=== PATIENT | male | born 1955 | race Caucasian/White ===

== ENCOUNTER → 2016-05-22 07:36 | Outpatient (CLI) | payer BC ==
[2012-09-04 10:21] VITALS: BMI 27.7
== END | disposition home or self-care (01) ==
LOC: D.RT 07:36
DX: R06.02 Shortness of breath (principal)

== ENCOUNTER 2018-03-10 10:07 | Inpatient (IN) | payer BC ==
[~2018-03-10] VITALS: Ht 185.4 cm; Wt 90.9 kg
--- NOTE | ~2018-03-10 | MORECARE ---
CASE MANAGEMENT DISCHARGE SUMMARY PATIENT: ELVIA VELÁQZUEZ UNIT: [id number] ADM DATE: 03/10/18 AGE: 62 : 59 SEX: M ROOM/BED: D.2236 AUTHOR: KENN PAREKH PHYSICIAN: REFERRING PHYSICIAN: NANCY VERMA MD DATE OF SERVICE: 03/10/18 Discharge Plan Patient Name: ELVIA VELÁZQUEZ Facility: [facility]:[place] : 1955 Planned Disposition: Anticipated Discharge Date: Discharge Date: Expected LOS: Initial Reviewer: [email or web address] Initial Review Date: 03/10/2018 Generated: 03/10/18 5:04 pm DCP- Discharge Planning Updated by [email or web address]: Ariane Arnold on 03/10/18 2:[address] Patient Name: ELVIA VELÁZQUEZ Admission Status: ER Accout number: [id number] Admission Date: 03-10-2018 : 1955 Admission Diagnosis: Attending: NANCY VERMA Current LOS: 1 Anticipated DC Date: Planned Disposition: Primary Insurance: [employer] BLUE PPO Discharge Planning Comments: CM MET WITH PATIENT ABOUT DC PLANNING/NEEDS. STATES PLANS TO DC TO HOME WHEN BETTER. PATIENT IS INDEPENDANT WITH ADL'S. NO NEEDS IDENTIFIED AT THIS TIME. CM WILL FOLLOW AND ASSIST NEEDED WITH DC PLANNING/NEEDS. Shop Tailor Apprentice: Ariane Arnold DCPIA - Discharge Planning Initial Assessment Updated by [email or web address]: Ariane Arnold on 03/10/18 3:54 pm * Is the patient Alert and Oriented? Yes * How many steps to enter\exit or inside your home? * PCP [facility] * [facility] * Preadmission Environment Home with Family * ADLs Independent * Equipment Nebulizer * List name and contact numbers for known caregivers / representatives who currently or will assist patient after discharge: JOSELYN, * Community resources currently utilized None * Additional services required to return to the preadmission environment? No * Can the patient safely return to the preadmission environment? Yes * Has this patient been hospitalized within the prior 30 days at any hospital? No Last DP export: 03/10/18 2:53 Patient Name: ELVIA VELÁZQUEZ Page [id number] at 1604 All edits/amendments must be made on the electronic document DICTATION DATE: 03/10/181603 LEATHER ROLLER: NICOLE 03/10/181603 RPT#: [id number] DC DATE: STATUS: ADM IN [facility] [address] [place] [address] END OF REPORT
--- NOTE | ~2018-03-10 | MORECARE ---
CASE MANAGEMENT DISCHARGE SUMMARY PATIENT: ELVIA VELÁZQUEZ UNIT: [id number] ADM DATE: 03/10/18 AGE: 62 : 59 SEX: M ROOM/BED: D.2236 AUTHOR: KENN PAREKH PHYSICIAN: REFERRING PHYSICIAN: NANCY VERMA MD DATE OF SERVICE: 03/10/18 Discharge Plan Patient Name: ELVIA VELÁZQUEZ [facility] [facility] 1955 Planned Disposition: Anticipated Discharge Date: Discharge Date: Expected LOS: Initial Reviewer: [email or web address] Initial Review Date: 03/10/2018 Generated: 03/10/18 4:53 pm DCPIA - Discharge Planning Initial Assessment Updated by [email or web address]: Ariane Arnold on 03/10/18 3:54 pm * Is the patient Alert and Oriented? Yes * How many steps to enter\exit or inside your home? * PCP [facility] * [facility] * Preadmission Environment Home with Family * ADLs Independent * Equipment Nebulizer * List name and contact numbers for known caregivers / representatives who currently or will assist patient after discharge: JOSELYN [phone] * Community resources currently utilized None * Additional services required to return to the preadmission environment? No * Can the patient safely return to the preadmission environment? Yes * Has this patient been hospitalized within the prior 30 days at any hospital? No Patient Name: ELVIA VELÁZQUEZ Page [id number] at 1554 All edits/amendments must be made on the electronic document DICTATION DATE: 03/10/181552 SYSTEMS INTEGRATION ADVISOR: NICOLE 03/10/181552 RPT#: [id number] DC DATE: STATUS: ADM IN [facility] [address] [place] [address] END OF REPORT
--- NOTE | ~2018-03-10 | OP ---
PATIENT NAME: ELVIA VELÁZQUEZ MEDICAL RECORD: [id number] :[birth year] LOCATION:D.MS [id number] ADMISSION DATE:03/10/18 SURGEON: MALIK DUMONT MD DATE OF OPERATION: 03/11/2018 SURGEON: Malik Dumont MD ANESTHESIA: General anesthesia by Radha Cooley CRNA. DIAGNOSIS: Right hemiscrotal skin abscess. PROCEDURE: Incision and drainage of right scrotum skin abscess. FINDINGS: The patient had shaved his scrotum. Diffuse scrotal skin cellulitis. Large cutaneous abscess in the right scrotal skin, does not enter into the scrotal cavity. SPECIMENS: Wound culture swabs for aerobic and anaerobic bacteria. ESTIMATED BLOOD LOSS: None. CLINICAL HISTORY: This is a 62-year-old male, who is planning to get . He attempted to shave his scrotum, apparently with a razor blade. He has developed scrotal skin cellulitis as well as a large pointing abscess in the scrotal skin. He came to the Emergency Room yesterday with a complaint of scrotal pain. Scrotal Ultrasound shows some signs of bilateral epididymitis also. He has not had any history of STDs. He may have some obstructive BPH symptoms. He was admitted for pain control. He comes today to have incision and drainage of the scrotal abscess. HE IS ALLERGIC TO ASPIRIN. He was given Ancef relocation services specialist to the OR. DESCRIPTION OF PROCEDURE: The patient was given induction of general anesthesia in supine position. He was then prepped and draped. His scrotum has apparently been shaved already by the patient and this is probably the inciting cause for the scrotal cellulitis and development of subsequent abscess. We could see a bit of pus already draining out spontaneously from the pointing abscess. A #10 blade was used to make a 1 cm incision. Pus came out from the incision. We obtained the wound swabs. I put my finger in and I could feel that the abscess cavity extended cranially and caudally especially more cranially for quite a distance. I followed the abscess cavity and continued to incise the scrotal skin until we had almost all of it filleted open. The wound was then irrigated out using normal saline. Two inch iodoform packing was then placed in to the wound cavity. The dartos fascia is intact and the abscesses did not enter into the hemiscrotal space where the testicle is. We then put 4 x 4 gauze on top of this and I gave him Fluffs and mesh panties. The patient will be going home today with some pain medications and doxycycline. His fiancee will be changing his wound packing for him on a daily basis. TRANSINT:[id number] Voice Confirmation ID: [id number] DOCUMENT ID: [id number] OPERATIVE REPORT [id number] ELVIA VELÁZQUEZ, MALIK Bloom MD at 0823 CC: [id number] DICTATION DATE: 03/11/181558 STAIR BUILDER: 03/11/18 1842 DIS IN 03/11/18 [facility] [address] [place] [address]
--- NOTE | ~2018-03-10 | MORECARE ---
CASE MANAGEMENT DISCHARGE SUMMARY PATIENT: ELVIA VELÁZQUEZ UNIT: [id number] ADM DATE: 03/10/18 AGE: 62 : 59 SEX: M ROOM/BED: D.2236 AUTHOR: IGLESIA,DOC PHYSICIAN: REFERRING PHYSICIAN: NANCY VERMA MD DATE OF SERVICE: 03/12/18 Discharge Plan Patient Name: ELVIA VELÁZQUEZ Facility: [facility]:[place] : 1955 Planned Disposition: Home Anticipated Discharge Date: Discharge Date: 03/11/2018 Expected LOS: 0 Initial Reviewer: [email or web address] Initial Review Date: 03/10/2018 Generated: 03/12/18 12:54 pm DCP- Discharge Planning Updated by [email or web address]: Ariane Arnold on 03/10/18 2:[address] Patient Name: ELVIA VELÁZQUEZ Admission Status: ER Accout number: [id number] Admission Date: 03-10-2018 : 1955 Admission Diagnosis: Attending: NANCY VERMA Current LOS: 1 Anticipated DC Date: Planned Disposition: Primary Insurance: [employer] BLUE PPO Discharge Planning Comments: CM MET WITH PATIENT ABOUT DC PLANNING/NEEDS. STATES PLANS TO DC TO HOME WHEN BETTER. PATIENT IS INDEPENDANT WITH ADL'S. NO NEEDS IDENTIFIED AT THIS TIME. CM WILL FOLLOW AND ASSIST NEEDED WITH DC PLANNING/NEEDS. Wellness Rn: Ariane Arnold DCPIA - Discharge Planning Initial Assessment Updated by [email or web address]: Ariane Arnold on 03/10/18 3:54 pm * Is the patient Alert and Oriented? Yes * How many steps to enter\exit or inside your home? * PCP [facility] * [facility] * Preadmission Environment Home with Family * ADLs Independent * Equipment Nebulizer * List name and contact numbers for known caregivers / representatives who currently or will assist patient after discharge: JOSELYN [phone] * Community resources currently utilized None * Additional services required to return to the preadmission environment? No * Can the patient safely return to the preadmission environment? Yes * Has this patient been hospitalized within the prior 30 days at any hospital? No Last DP export: 03/10/18 3:04 Patient Name: ELVIA VELÁZQUEZ Page 13820 at 1154 All edits/amendments must be made on the electronic document DICTATION DATE: 03/12/181152 BELLHOP SERVICE CAPTAIN: NICOLE 03/12/181152 RPT#: [id number] DC DATE:03/11/18 STATUS: DIS IN [facility] [address] [place] [address] END OF REPORT
[2018-03-10] MEDS ORDERED: K-TAB10 MEQ PO (10:15)
[2018-03-10] MEDS ORDERED: LOTREL 5-40 MG1 EACH PO (10:16)
[2018-03-10] MEDS ORDERED: AMBIEN5 MG PO (10:16)
[2018-03-10] MEDS ORDERED: CARDURA1 MG PO (10:17)
[2018-03-10 11:14] LABS: BASOPHILS 0.1 % (0-2); EOSINOPHILS 0.6 % (0-7); HEMATOCRIT 44.8 % (42.0-54.0); HEMOGLOBIN 15.8 g/dL (13.5-17.5); IMMATURE GRANULOCYTES 0.2 % (0-5); LYMPHOCYTES 6.9 % (15-50); MCH 30.7 pg (26.0-34.0); MCHC 35.3 g/dL (31.0-37.0); MEAN PLATELET VOLUME 10.9 fL (7.4-10.4); MONOCYTES 7.7 % (2-11); NEUTROPHILS 84.5 % (40-80); RBC 5.15 10x6/uL (4.20-6.10); RDW 13.4 % (11.5-14.5); WBC 13.7 10x3/uL (4.8-10.8)
[2018-03-10 11:32] LABS: PLATELET COUNT 136 10x3/uL (130-400)
[2018-03-10 11:52] LABS: ALBUMIN 3.3 g/dL (3.4-5.0); ANION GAP 9.3 mmol/L (8-16); BILIRUBIN - TOTAL 0.86 mg/dL (0.2-1.3); CALCIUM 9.1 mg/dL (8.5-10.1); CARBON DIOXIDE 29.2 mmol/L (21.0-32.0); CREATININE - SERUM 1.2 mg/dL (0.6-1.3); POTASSIUM - SERUM 3.5 mmol/L (3.5-5.1); PROTEIN - SERUM 7.2 g/dL (6.4-8.2)
[2018-03-10] MEDS ORDERED: AVAPRO300 MG PO (16:03)
[2018-03-10] MEDS ORDERED: MIRAPEX ER0.375 MG PO (16:05)
[2018-03-10] MEDS ORDERED: ELAVIL25 MG PO (16:07)
[2018-03-10] MEDS ORDERED: NORCO 10-325 TA1 TAB PO (16:08)
[2018-03-10] MEDS ORDERED: CIALIS2.5 MG PO (16:09)
[2018-03-10] MEDS ORDERED: PHENERGAN25 M1 PO (16:09)
[2018-03-10 16:11] VITALS: Ht 185.4 cm; Wt 90.9 kg
[2018-03-10 20:00] VITALS: BP 133/70
[2018-03-11 04:56] LABS: BASOPHILS 0.1 % (0-2); EOSINOPHILS 2.3 % (0-7); HEMATOCRIT 40.2 % (42.0-54.0); HEMOGLOBIN 13.9 g/dL (13.5-17.5); IMMATURE GRANULOCYTES 0.2 % (0-5); LYMPHOCYTES 12.4 % (15-50); MCH 30.2 pg (26.0-34.0); MCHC 34.6 g/dL (31.0-37.0); MCV 87.2 fL (80.0-100.0); MEAN PLATELET VOLUME 10.8 fL (7.4-10.4); MONOCYTES 7.8 % (2-11); NEUTROPHILS 77.2 % (40-80); PLATELET COUNT 132 10x3/uL (130-400); RBC 4.61 10x6/uL (4.20-6.10); RDW 13.7 % (11.5-14.5)
[2018-03-11 05:00] VITALS: BP 130/72
[2018-03-11 05:05] LABS: ALBUMIN 2.8 g/dL (3.4-5.0); ANION GAP 8.8 mmol/L (8-16); BILIRUBIN - TOTAL 0.48 mg/dL (0.2-1.3); CALCIUM 7.9 mg/dL (8.5-10.1); CARBON DIOXIDE 29.6 mmol/L (21.0-32.0); CREATININE - SERUM 1.1 mg/dL (0.6-1.3); POTASSIUM - SERUM 3.4 mmol/L (3.5-5.1); PROTEIN - SERUM 6.2 g/dL (6.4-8.2)
[2018-03-11 05:08] LABS: WBC 8.9 10x3/uL (4.8-10.8)
[2018-03-11 07:43] VITALS: BP 138/90
[2018-03-11 16:07] VITALS: BP 141/79
[2018-03-11 16:38] VITALS: BP 151/80
[2018-03-11] MEDS ORDERED: VIBRAMYCIN25 MG/5 ML PO (17:37)
== END 2018-03-11 19:35 | disposition home or self-care (01) | DRG 728 ==
LOC: D.ER 10:07 → D.MS 13:59
PROVIDERS: Family Medicine; Urology
PROC: 0V95XZZ Drainage of Scrotum, External Approach (ICD-10-PCS; principal; 2018-03-11 12:30)
DX: N49.2 Inflammatory disorders of scrotum (principal); I10 Essential (primary) hypertension; F41.9 Anxiety disorder, unspecified; E78.5 Hyperlipidemia, unspecified; E11.9 Type 2 diabetes mellitus without complications

== ENCOUNTER → 2019-10-22 08:01 | Outpatient (CLI) | payer BC ==
[2018-03-10 16:11] VITALS: BMI 26.4
[~2019-10-22 08:01] MED LIST: AMBIEN5 MG PO; AVAPRO300 MG PO; CARDURA1 MG PO; CIALIS2.5 MG PO; ELAVIL25 MG PO; K-TAB10 MEQ PO; LOTREL 5-40 MG1 EACH PO; MIRAPEX ER0.375 MG PO; NORCO 10-325 TA1 TAB PO; PHENERGAN25 M1 PO; VIBRAMYCIN25 MG/5 ML PO
== END | disposition home or self-care (01) ==
LOC: D.HCCARDIO 08:01
PROVIDERS: ATTEND Internal Medicine Cardiovascular Disease
DX: R00.2 Palpitations (principal)

== ENCOUNTER 2019-11-04 12:11 | Outpatient (CLI) | payer BC ==
[~2019-11-04] VITALS: Ht 185.4 cm; Wt 95.5 kg
--- NOTE | ~2019-11-04 | HEMODYNAMI ---
PATIENT:ELVIA VELÁZQUEZ MEDICAL RECORD: [id number] : 59 LOCATION:[facility] ADMISSION DATE: 11/04/19 Generatedon:11/04/201915:35 Patient name: ELVIA VELÁZQUEZ Patient #: [id number] SSN: [id number] : 1955 Date of study: 11/04/2019 Page: Of Hemodynamic Procedure Report Patient Data Patient Demographics Procedure consent was obtained First Name: ELVIA Gender: Male Last Name: EBER : 1955 Middle Initial: RUFINO Age: 64 year(s) Patient #: [id number] Race: Unknown SSN: [id number] Additional ID: [id number] Contact details Address: [place] [address] State: [place] City: [place] Zip code: [address] Past Medical History Performed procedures and imaging results Date Procedure Procedure Results Comments Stress testing Positive->Intermediate with SPECT MPI risk Allergies Allergen Reaction Date Comments Reported Other allergy 11/04/2019 ASPIRIN, PCN Admission Admission Data Admission Date: 11/04/2019 Admission Time: 12:11 Height (in.): 72.83 BSA: 2.19 (m2) Height (cm.): 185 BMI: 27.76 (kg/m2) Weight (lbs.): 209.44 Weight (kg.): 95 Lab Results Lab Result Date: 11/04/2019 Lab Result Time: 0:00 Biochemistry Name Units Result Min Max BUN mg/dl 22 --(----)-* 7 18 Creatinine mg/dl 1.2 --(---*)-- 0.6 1.3 eGFR ml/min 64.35637 *-(----)-- 90 120 NONAFRICAN CBC Name Units Result Min Max Hematocrit % 46 --(-*--)-- 42 54 Hemoglobin g/dl 15.4 --(-*--)-- 13.5 17.5 Procedure Procedure Types Cath Procedure Diagnostic Procedure LHC C w/Coronaries Sedation Charges Moderate Sedation up to 30 minutes Procedure Description Procedure Date Procedure Date: 11/04/2019 Procedure Start Time: 15:10 Procedure End Time: 15:33 Procedure Staff Name Function Jose E Briscoe MD Performing Physician Candelaria Fernandez RT Monitor Brenda Keita RT Scrub Jakob Tucker RN Nurse Maria Villafuerte RT Monitor Procedure Data Cath Procedure Fluoroscopy Diagnostic fluoroscopy Total fluoroscopy Time: 6.7 time: 6.7 min min Diagnostic fluoroscopy Total fluoroscopy dose: dose: 1466 mGy 1466 mGy Contrast Material Contrast Material Type Amount (ml) Isovue 370 104 Entry Location Entry Primary Successful Side Size Upsize Upsize Entry Closure Cheung ccessful Closure Location (Fr) 1 (Fr) 2 (Fr) Remarks Device Remarks Radial Right 6 Fr Mechanical artery Short Compression Estimated blood loss: 5 ml Diagnostic catheters Device Type Used For End Catheter Placement DIAGNOSTIC Radhames 110cm Procedure 5Fr catheter ([id number]) DIAGNOSTIC [place] 110cm 5 Procedure Fr catheter ([id number]) DIAGNOSTIC [place] 4.5 5Fr Procedure catheter ([id number]) Procedure Complications No complications Procedure Medications Medication Administration Route Dosage 0.9% NaCl I.V. 100 ml/hr Oxygen etCO2 Nasal cannula 2 l/min Lidocaine 2% added to field 20 Heparin Flush Bag added to field 2 bags (1000units/500ml NS) Radial Cocktail added to field 1 syringe (Verapamil 2mg/Nitro 400mcg/Heparin 1500units) Versed I.V. 1 mg Fentanyl I.V. 50 mcg Radial Cocktail I.A. 1 syringe (Verapamil 2mg/Nitro 400mcg/Heparin 1500units) Versed I.V. 1 mg Fentanyl I.V. 50 mcg Versed I.V. 1 mg Versed I.V. 1 mg Hemodynamics Rest BSA: 2.19 (m2) HGB: 15.4 (g/dl) O2 Consumption: Estimated: 241.43 (ml/min) O2 Co nsumption indexed: Estimated:110.24 (ml/min/m) Heart Rate: 52 (bpm) Pressure Samples Time Site Value (mmHg) Purpose Heart Use Rate(bpm) 15:14 LV 130/-3,32 Snapshot 47 15:15 AO 98/62(77) Pullback 55 15:15 LV 109/7,17 Pullback 55 Gradients Valve Time Site 1 Site 2 Mean SEP/DFP Peak To Heart Use (mmHg) (sec/min) Peak Rate (mmHg) (bpm) Aortic 15:15 LV AO 1 4 11 55 109/7,17 98/62(77) Calculations Valve P-P Mean Valve Index Valve Source Name Gradient Area Flow (cm2) Aortic 11 1 11 1 Snapshots Pre Cath Intra NCS Post Cath Vital Signs Time Heart Resp SPO2 etCO2 NIBP (mmHg) Rhythm Pain Sedation Rate (ipm) (%) (mmHg) Status Level (bpm) 14:27:41 49 14 97 11.2 198/111(138) SB 0 (11) 10(A) , No pain 14:34:02 51 19 97 41.8 198/107(130) SB 0 (11) 10(A) , No pain 14:39:07 50 16 94 43.3 181/101(122) SB 0 (11) 10(A) , No pain 14:43:17 51 17 94 45.5 168/109(129) SB 0 (11) 10(A) , No pain 14:48:10 48 18 95 44.8 159/106(134) SB 0 (11) 10(A) , No pain 14:53:13 49 13 96 52.3 178/107(133) SB 0 (11) 10(A) , No pain 14:58:10 52 15 95 51.5 172/104(124) SB 0 (11) 10(A) , No pain 15:03:07 50 11 95 50 156/103(119) SB 0 (11) 10(A) , No pain 15:08:06 48 14 96 50 156/106(124) SB 0 (11) 10(A) , No pain 15:12:16 50 15 95 48.5 164/101(131) SB 0 (11) 10(A) , No pain 15:16:34 58 16 94 46.3 122/75(99) SB 0 (11) 9(A) , No pain 15:20:38 55 19 94 47.8 133/90(109) SB 0 (11) 9(A) , No pain 15:24:48 52 10 94 47.8 142/86(112) SB 0 (11) 9(A) , No pain 15:29:02 50 15 95 48.5 144/85(104) SB 0 (11) 10(A) , No pain 15:33:07 50 9 95 50 149/95(123) SB 0 (11) 10(A) , No pain Medications Time Medication Route Dose Verified Delivered Reason Notes E ffectiveness by by 14:23:01 0.9% NaCl I.V. 100 Jose E Buffie used for ml/hr Luis Felipe Tucker RN procedure 14:23:07 Oxygen etCO2 2 l/min Jose E Buffie used for Nasal Luis Felipe Tucker RN procedure cannula 14:23:13 Lidocaine 2% added 20ml Jose E Jose E for local to vial Luis Felipe Briscoe MD anesthetic field 14:23:19 Heparin Flush added 2 bags Jose E Jose E used for Bag to Luis Felipe Briscoe MD procedure (1000units/500ml field NS) 14:23:24 Radial Cocktail added 1 Jose E Jose E used for (Verapamil to syringe Luis Felipe Briscoe MD procedure 2mg/Nitro field 400mcg/Heparin 1500units) 15:12:28 Versed I.V. 1 mg Jose E Buffie for Luis Felipe Tucker RN sedation 15:12:33 Fentanyl I.V. 50 mcg Jose E Buffie for Luis Felipe Tucker RN sedation 15:13:29 Radial Cocktail I.A. 1 Jose E Buffie used for (Verapamil syringe Luis Felipe Tucker RN procedure 2mg/Nitro 400mcg/Heparin 1500units) 15:16:03 Versed I.V. 1 mg Jose E Buffie for Luis Felipe Tucker RN sedation 15:16:07 Fentanyl I.V. 50 mcg Jose E Buffie for Luis Felipe Tucker RN sedation 15:21:11 Versed I.V. 1 mg Jose E Buffie for Luis Felipe Tucker RN sedation 15:25:12 Versed I.V. 1 mg Jose E Buffie for Luis Felipe Tucker RN sedation Procedure Log Time Note 13:42:48 Informed consent obtained and on chart 13:43:06 Procedure Status Elective Heart Cath (OP). 13:43:16 Time tracking: Regular hours (M-F 7:00 - 5:00) 13:43:20 Plan of Care:Hemodynamics will remain stable., Cardiac rhythm will remain stable., Comfort level will be maintained., Respiratory function will remain adequate., Patient/ family verbilizes understanding of procedure., Procedure tolerated without complication., Recovers from procedure without complications.. 13:43:34 H&P Date Dictated: 10/14/2019 Within 30 days and on chart., H&P Addendum completed by physician on day of procedure. (MUST COMPLETE FOR ALL OUTPATIENTS). 13:43:49 Patient allergic to Other allergyASPIRIN, PCN 13:54:28 Stress Test: yes; abnormal INFERIOR, LATERAL, APICAL 13:58:05 Patient Weight : 209.44 lbs 13:58:07 Patient Height : 72.83 inches 14:09:35 Brenda Keita RT(R) (CV) sent for patient. Start room use. 14:14:31 Patient received from Pre/Post Procedure Room to CCL 2 Alert and oriented. Tansferred to table in Supine position. 14:14:32 Warm blankets applied, and daniel hugger turned on for patient comfort. 14:14:32 Correct patient and procedure confirmed by team. 14:14:33 ECG and BP/O2 sat monitors applied to patient. 14:23:01 0.9% NaCl 100 ml/hr I.V. was administered by Jakob Tucker RN; used for procedure; Verbal order read back and verified. 14:23:07 Oxygen 2 l/min etCO2 Nasal cannula was administered by Jakob Tucker RN; used for procedure; Verbal order read back and verified. 14:23:13 Lidocaine 2% 20ml vial added to field was administered by Jose E Briscoe MD; for local anesthetic; Verbal order read back and verified. 14:23:19 Heparin Flush Bag (1000units/500ml NS) 2 bags added to field was administered by Jose E Brisoce MD; used for procedure; Verbal order read back and verified. 14:23:24 Radial Cocktail (Verapamil 2mg/Nitro 400mcg/Heparin 1500units) 1 syringe added to field was administered by Jose E Briscoe MD; used for procedure; Verbal order read back and verified. 14:26:01 Vital chart was started 14:26:51 Baseline sample Acquired. 14:26:59 Rhythm: sinus bradycardia 14:27:01 Full Disclosure recording started 14:28:23 Pre-procedure instructions explained to patient. 14:28:23 Pre-op teaching completed and patient verbalized understanding. 14:28:27 Family in patients room. 14:28:28 Patient NPO since Midnight. 14:29:20 Is patient on blood thinner?No 14:29:24 Patient diabetic? No. 14:29:27 Previous problem with sedation/anesthesia? No ? 14:29:28 Snore? Yes 14:29:29 Sleep apnea? No 14:29:35 Deviated septum? No 14:29:36 Opens mouth fully? Yes 14:29:37 Sticks out tongue? Yes 14:29:40 Airway obstruction? No ? 14:30:30 Dentures? No ? 14:30:33 Pre procedure: right dorsailis pedis pulse 1+ Palpable, but thready & weak; easily obliterated 14:30:36 Modified Alex's test Ulnar < 7 seconds 14:30:38 Patient pain scale 0/10 ?. 14:30:44 IV patent on arrival in left hand with 0.9% NaCl at [facility]. 14:31:17 Lab Result : BUN 22 mg/dl 14:31:17 Lab Result : Creatinine 1.2 mg/dl 14:31:17 Lab Result : eGFR NONAFRICAN 64.12708 ml/min 14:31:17 Lab Result : Hemoglobin 15.4 g/dl 14:31:17 Lab Result : Hematocrit 46 % 14:32:44 Lab results completed and on chart. 14:32:48 Right Radial & Right Groin area was prepped with chlora-prep and draped in sterile fashion 14:32:49 Alarms reviewed by R. N. 14:32:50 Sharps counted by scrub and verified by R.N. 14:36:27 Use device set Radial Dx or PCI 14:36:28 ACIST Syringe (79277) opened to sterile field. 14:36:29 Medline Cath Pack ([id number]) opened to sterile field. 14:36:30 Bag Decanter () opened to sterile field. 14:36:31 ACIST Hand Control (50267) opened to sterile field. 14:36:31 ACIST Manifold (85771) opened to sterile field. 14:36:31 Tegaderm 4 x 4 (1626W) opened to sterile field. 14:36:32 MBrace Wrist Support ([id number]) opened to sterile field. 14:36:33 NEEDLE Cook 21G 4cm Radial (W27154) opened to sterile field. 14:36:35 EMERALD Guide Wire (712-732) opened to sterile field. 14:36:36 SHEATH 6FR RAIN (7465312) opened to sterile field. 14:59:08 --------ALL STOP TIME OUT------ 14:59:11 Final Timeout: patient, procedure, and site verified with staff and physician. All members of the team are in agreement. 14:59:14 Right Radial & Right Groin site verified by team. 14:59:17 Fire Safety Assessment: A--An alcohol-based skin anteseptic being used preoperatively., C--Open oxygen or nitrous oxide is being used., D--An ESU, laser, or fiber-optic light is being used. 14:59:19 Physical assessment completed. ASA score P 2 - A patient with mild systemic disease as per Jose E Briscoe MD. 14:59:22 2) 60-89 Mildly reduced kidney function, and other findings (as for stage 1) point to kidney disease. 14:59:26 Maximum allowable contrast dose (3.7 X eGFR X 0.75)180 ml. 14:59:28 Sedation plan: IV Moderate Sedation Medication:Versed, Fentanyl 15:09:56 Procedure started. 15:10:03 Local anesthetic to right radial artery with Lidocaine 2% by Jose E Briscoe MD.INITIAL ACCESS ONLY 15:11:16 A 6 Fr Short sheath was inserted into the Right Radial artery 15:12:28 Versed 1 mg I.V. was administered by Jakob Tucker RN; for sedation; Verbal order read back and verified. 15:12:33 Fentanyl 50 mcg I.V. was administered by Jakob Tucker RN; for sedation; Verbal order read back and verified. 15:13:26 A DIAGNOSTIC Radhames 110cm 5Fr catheter ([id number]) was advanced over the wire and used for Procedure. 15:13:29 Radial Cocktail (Verapamil 2mg/Nitro 400mcg/Heparin 1500units) 1 syringe I.A. was administered by Jakob Tucker RN; used for procedure; Verbal order read back and verified. 15:13:29 LV gram done using HAIRSTON 15:14:04 Injector settings: Ml/sec: 5, Volume: 15, 15:14:20 LV hemodynamics recorded. 15:14:49 EF : 55 % 15:15:11 RCA angiography performed. 15:15:15 Injector settings: Ml/sec: 3, Volume: 6, 15:16:03 Versed 1 mg I.V. was administered by Jakob Tucker RN; for sedation; Verbal order read back and verified. 15:16:07 Fentanyl 50 mcg I.V. was administered by Jakob Tucker RN; for sedation; Verbal order read back and verified. 15:18:07 unable to engage lca with nabil catheter switching to tiger. 15:18:16 A DIAGNOSTIC [place] 110cm 5 Fr catheter ([id number]) was advanced over the wire and used for Procedure. 15:20:23 UNABLE TO ENGAGE LCA WITH TIGER. 15:20:41 A DIAGNOSTIC [place] 4.5 5Fr catheter ([id number]) was advanced over the wire and used for Procedure. 15:21:11 Versed 1 mg I.V. was administered by Jakob Tucker RN; for sedation; Verbal order read back and verified. 15:21:46 LCA angiography performed. 15:22:35 Injector settings: Ml/sec: 3, Volume: 6, 15:23:25 UNABLE TO ENGAGE FOR ALL VIEWS OF THE LCA WITH THE TIGER 4.5 CATHETER . 15:24:06 GUIDE 5FR EBU 3.5 catheter ([id number]) opened to sterile field. 15:25:12 Versed 1 mg I.V. was administered by Jakob Tucker RN; for sedation; Verbal order read back and verified. 15:26:06 LCA angiography performed. 15:26:20 Injector settings: Ml/sec: 3, Volume: 6, 15:29:08 Catheter removed. 15:29:12 ZEPHYR REGULAR TR BAND ([id number]) opened to sterile field. 15:29:25 Sheath removed intact; hemostasis achieved with Mechanical Compression to the Right Radial artery. 15:29:27 Procedure ended.(Physican Out) 15:29:45 Fluoroscopy time 06.70 minutes. 15:29:48 Fluoroscopy dose: 1466 mGy 15:29:48 Flurop Dose total: 1466 15::53 Dose Area Product 35338 mGy/cm. 15:30:02 Contrast amount:Isovue 370 104ml. 15:30:04 Maximum allowable dose exceeded? No. 15:30:05 Sharps counted by scrub and verified by R.N. 15:30:09 Post Procedure Pulses reassessed and unchanged 15:30:12 Post procedure: right dorsailis pedis pulse 2+ Normal; easily identifiable; not easily obliterated. 15:30:15 Post-procedure physical assessment completed. ASA score P 2 - A patient with mild systemic disease as per Jose E Briscoe MD. 15:30:18 Post procedure rhythm: unchanged. 15:30:21 Estimated blood loss: 5 ml 15:30:22 Post procedure instruction explained to patient.Patient verbalizes understanding. 15:30:23 Patient needs reinforcement of post procedure teaching. 15:30:55 Procedure type changed to Cath procedure, Diagnostic procedure, LHC, LHC w/Coronaries, Sedation Charges, Moderate Sedation up to 30 minutes 15:32:19 Procedure and supply charges have been captured, reviewed, submitted and are correct. 15:32:23 Procedure Complication : No complications 15:32:27 Vital chart was stopped 15:33:03 [facility] Findings: mild to moderate CAD (<70%) 15:33:05 Operative report dictated upon procedure completion. 15:33:05 See physician's report for complete and final results. 15:33:10 Report given to Pre/Post Procedure Room. 15:33:27 Patient transfered to Pre/Post Procedure Room with Stretcher. 15:33:30 Procedure ended. 15:33:30 Full Disclosure recording stopped 15:33:36 End room use (Document Last) 15:34:08 End room use (Document Last) 15:34:42 [place] band inflated with 13cc of air. Device Usage Item Name Manufacture Quantity Catalog Hospital Part Current Minima l Lot# / Number Charge Number Stock Stock Serial# Code ACIST Acist 1 07719 706462 628089 639666 20 Syringe Medical (38015) Systems Inc Medline Medline 1 [id number] 726220 14233 486223 5 Cath Pack ([id number]) Bag Microtek 1 2001S 804426 95843 238095 5 Decanter Medical Inc. () ACIST Hand Acist 1 53048 110390 848790 556791 5 Control Medical (39165) Systems Inc ACIST Acist 1 77754 012763 221249 956028 5 Manifold Medical (86081) Systems Inc Tegaderm 4 3M 1 1626W 580421 703273 302887 5 x 4 (1626W) MBrace Advanced 1 140-0250-00 426459 36228 537424 5 Wrist Vascular Support Dynamics ([id number]) NEEDLE Cook Cook Medical 1 [id number] 349947 951001 669107 5 21G 4cm Radial (J23729) EMERALD Cardinal 1 502-455 930058 407386 307826 5 Guide Wire Health (502455) SHEATH 6FR Cardinal 1 5609225 056715 8559883 090240 5 [facility] Health (0924111) DIAGNOSTIC Terumo 1 40-5023 795717 147843 836171 5 Radhames 110cm 5Fr catheter (418079) DIAGNOSTIC Terumo 1 40-5013 357535 514488 568516 5 [place] 110cm 5 Fr catheter (403797) DIAGNOSTIC Terumo 1 40-5012 351433 835178 938397 5 [place] 4.5 5Fr catheter (372148) GUIDE 5FR Medtronic 1 [id number] 013823 199924 523269 1 EBU 3.5 catheter ([id number]) ZEPHYR Cardinal 1 543839 460385 4709381 244774 5 REGULAR TR Health BAND (933846) Signature Audit [place] Stage Time Signature Unsigned Intra-Procedure 11/04/2019 Jakob Tucker RN 3:34:53 PM Intra-Procedure 11/04/2019 Jose E Briscoe MD 3:35:20 PM Signatures Performing Physician : Signature : Jose E Brsicoe MD Date : Time : Monitor : Candelaria Fernandez Signature : RT Date : Time : Nurse : Jakob Tucker RN Signature : Date : Time : Monitor : Maria Villafuerte Signature : RT Date : Time : [address] [place] [address]
[2019-11-04] MEDS ORDERED: PAXIL20 MG PO (12:44)
[2019-11-04] MEDS ORDERED: DONEPEZIL HCL5 MG PO (12:44)
[2019-11-04] MEDS ORDERED: LIPITOR10 MG PO (12:44)
[2019-11-04] MEDS ORDERED: NORMODYNE / TR300 MG PO (12:44)
[2019-11-04] MEDS ORDERED: PREVACID30 MG PO (12:45)
[2019-11-04] MEDS ORDERED: LOTENSIN20 MG PO (12:46)
[2019-11-04] MEDS ORDERED: FUROSEMIDE20 MG PO (12:46)
[2019-11-04] MEDS ORDERED: BACTRIM DS TAB1 EAC1 PO (12:48)
[2019-11-04] MEDS ORDERED: MUPIROCIN22 GM TOPICAL (12:49)
[2019-11-04] MEDS ORDERED: K-TAB10 MEQ PO (12:49)
[2019-11-04] MEDS ORDERED: AMBIEN10 MG PO (12:59)
[2019-11-04 13:04] VITALS: BP 180/89; Ht 185.4 cm; Wt 95.5 kg
[2019-11-04 13:27] LABS: BASOPHILS 0.2 % (0-2); EOSINOPHILS 2.5 % (0-7); HEMOGLOBIN 15.4 g/dL (13.5-17.5); IMMATURE GRANULOCYTES 0.2 % (0-5); LYMPHOCYTES 21.6 % (15-50); MCH 28.8 pg (26.0-34.0); MCHC 33.5 g/dL (31.0-37.0); MEAN PLATELET VOLUME 10.1 fL (7.4-10.4); MONOCYTES 7.5 % (2-11); PLATELET COUNT 135 10x3/uL (130-400); RBC 5.35 10x6/uL (4.20-6.10); RDW 16.2 % (11.5-14.5); WBC 6.4 10x3/uL (4.8-10.8)
[2019-11-04 13:29] LABS: CALCIUM 8.3 mg/dL (8.5-10.1); CARBON DIOXIDE 31.7 mmol/L (21.0-32.0); CHOL - HDL RATIO 3.5 ratio (2.3-4.9); CREATININE - SERUM 1.2 mg/dL (0.6-1.3); POTASSIUM - SERUM 3.7 mmol/L (3.5-5.1)
--- NOTE | 2019-11-04 15:45 | NUR ---
PT REC'D TO ROOM 3 VIA STRETCHER FROM SUPERVISOR ELECTRIC. DR. PEREZ AT BS TO UPDATE PT. MONITORS ESTAB. SEE [employer] SURFACE HEATER OPERATOR. ALARMS ON AND C/L IN REACH.
--- NOTE | 2019-11-04 16:00 | NUR ---
R WRIST SITE C/D/I, NO S/S BLEEDING OR HEMATOMA. R ARM/HAND WARM WITH PALP PULSES. PT SITTING UP IN BED, SANDWICH TRAY PROVIDED. ALARMS ON AND C/L IN REACH.
--- NOTE | 2019-11-04 16:30 | NUR ---
R Z BAND SITE C/D/I, NO S/S BLEEDING OR HEMATOMA. ARM/HAND WARM WITH PALP PULSES. VSS. C/L IN REACH.
--- NOTE | 2019-11-04 16:45 | NUR ---
5 CC AIR REMOVED FROM Z BAND SLOWLY - NO S/S BLEEDING - WILL CONT CLOSE MONITORING. PT ALERT AND ORIENTED. VSS. C/L IN REACH.
--- NOTE | 2019-11-04 17:00 | NUR ---
ALL AIR REMOVED FROM Z BAND, NO S/S BLEEDING OR SWELLING. WILL CONT CLOSE MONITORING. ALARMS ON AND C/L IN REACH.
--- NOTE | 2019-11-04 17:15 | NUR ---
R WRIST SITE C/D/I, NO S/S BLEEDING OR SWELLING. ARM/HAND WARM WITH PALP PULSES. PIV D/C'D INTACT, DSG APPLIED. PT ALLOWED UP TO GET DRESSED AND GO TO BR INDEPENDENTLY.
--- NOTE | 2019-11-04 17:25 | NUR ---
ALL DISCHARGE INSTRUCTIONS REVIEWED WITH PT - VERBALIZES UNDERSTANDING. Z BAND OFF AND DSG APPLIED.
--- NOTE | 2019-11-04 17:35 | NUR ---
PT D/C'D VIA WC TO PRIVATE VEHICLE, R WRIST IMMOBILIZER IN PLACE. PT HAS ALL BELONGINGS AND PAPERWORK.
== END 2019-11-04 17:35 | disposition home or self-care (01) ==
LOC: D.CATH 12:11
PROVIDERS: ATTEND Internal Medicine Cardiovascular Disease
DX: I20.9 Angina pectoris, unspecified (principal); R94.39 Abnormal result of other cardiovascular function study; I10 Essential (primary) hypertension; E78.5 Hyperlipidemia, unspecified; R00.2 Palpitations; R60.9 Edema, unspecified

== ENCOUNTER → 2019-11-09 08:19 | Outpatient (CLI) | payer BC ==
[2019-11-04 13:04] VITALS: BMI 27.7
[~2019-11-09 08:19] MED LIST changes: +AMBIEN10 MG PO; +BACTRIM DS TAB1 EAC1 PO; +DONEPEZIL HCL5 MG PO; +FUROSEMIDE20 MG PO; +LIPITOR10 MG PO; +LOTENSIN20 MG PO; +MUPIROCIN22 GM TOPICAL; +NORMODYNE / TR300 MG PO; +PAXIL20 MG PO; +PREVACID30 MG PO
== END | disposition home or self-care (01) ==
LOC: D.CT 08:00
PROVIDERS: ATTEND Internal Medicine Cardiovascular Disease
DX: I10 Essential (primary) hypertension (principal); R00.2 Palpitations; R60.9 Edema, unspecified

== ENCOUNTER → 2020-01-25 10:01 | Outpatient (CLI) | payer BC ==
[2019-11-04 13:04] VITALS: BMI 27.7
== END | disposition home or self-care (01) ==
LOC: D.US 10:01
PROVIDERS: ATTEND Nurse Practitioner Adult Health
DX: M79.605 Pain in left leg (principal)